=== PATIENT | male | born 1950 | race Caucasian/White ===

== ENCOUNTER 2019-09-13 01:52 | Inpatient (IN) ==
[~2019-09-13 01:52] MED LIST: DUONEB (A & A) INH ONE; SOLU-MEDROL IV ONE
--- NOTE | 2019-09-13 02:54 | PROVIDER DOCUMENTATION ---
HPI-General Adult - General Chief Complaint: Shortness of Breath Stated Complaint: resp distress Time Seen by Provider: 09/13/19 02:15 Source: patient, EMS Allergies/Adverse Reactions: Patient Allergies Allergy/AdvReac Type Severity Reaction Status Date / Time No Known Allergies Allergy Verified 09/13/19 02:55 Home Medications: Home Medication List Medication Instructions Recorded Confirmed Last Taken Type Ipratropium/Albuterol Sulfate 1 inh INH Q4H 08/20/18 09/13/19 08/20/18 History [Combivent Respimat 20-100 Mcg] Ranitidine [Zantac] 1 tab PO BID 08/20/18 09/13/19 Unknown History ATORVAstatin [Lipitor] 40 mg PO DAILY #90 tab 08/23/18 09/13/19 Unknown Rx Aspirin [Adult Low Dose Aspirin EC] 81 mg PO DAILY #30 tablet.dr 08/23/18 09/13/19 Unknown Rx Fluticasone/Vilanterol [Breo 1 ea IH DAILY #1 aer.pow.ba 08/23/18 09/13/19 Unknown Rx Ellipta Inhaler] Tiotropium [place] Inhaler 1 puff INH RTDAILY #30 inhaler 08/23/18 09/13/19 Unknown Rx [Spiriva] - History of Present Illness -Gen Adult Nature of Presenting Problems: Pt presents with sob, pmh of copd on home O2, now with worsening sob over the last couple of days, pt denies f/c, savage, cp, ap, n/v/d. Pt reports cough, pt is in mild respiratory distress, on BiPap Location of Pain/Injury: reports: none Pain Radiation: reports: no radiation Quality of Pain: reports: none Severity: reports: moderate Onset/Duration: reports: 2 days ago Timing: reports: still present Context/Activities at Onset: reports: none Modifying Factors: improves with: nothing Associated Symptoms: reports: cough, shortness of breath Similar Symptoms Previously?: Yes Recently seen or treated by another doctor?: No Review of Systems - Adult - REVIEW OF SYSTEMS - ADULT Constitutional: reports: no symptoms reported Eyes: reports: no symptoms reported Ears, Nose, Mouth & Throat: reports: no symptoms reported Cardiovascular: reports: no symptoms reported Respiratory: reports: see HPI Gastrointestinal: reports: no symptoms reported Genitourinary: reports: no symptoms reported Musculoskeletal: reports: no symptoms reported Integumentary: reports: no symptoms reported Neurological: reports: no symptoms reported Psychiatric: reports: no symptoms reported Endocrine: reports: no symptoms reported Hematologic/Lymphatic: reports: no symptoms reported Allergic/Immunologic: reports: no symptoms reported All Other Systems: Reviewed and Negative Past History - Adult - PAST MEDICAL HISTORY-ADULT Review of Records: reports: Old Records Reviewed, Nursing Assessment Review, Medications Reviewed, Social history reviewed & non-contributory. Major Childhood Illnesses: reports: denies history Cardiovascular: reports: denies history Respiratory: reports: COPD Gastrointestinal: reports: denies history Obstetrical/Gynecological: reports: denies history Genitourinary: reports: denies history Musculoskeletal: reports: denies history Neurological: reports: denies history Psychiatric: reports: denies history Endocrine/Immune: reports: denies history Other Conditions: reports: denies history - PRIOR SURGERIES/PROCEDURES Surgical/Procedure History: reports: appendectomy, tonsillectomy - IMMUNIZATION STATUS Childhood Immunizations: See Nurse Assessment Flu Vaccine: See Nurse Assessment - FAMILY HISTORY Family History: reviewed, not pertinent Physical Exam-General - PHYSICAL EXAM-ADULT Initial Vital Signs Reviewed: Yes - CONSTITUTIONAL General Appearance: appears well - EYES Eyes: PERRL/EOMI - HEAD, EARS, NOSE, MOUTH & THROAT HENMT: normocephalic/atraumatic - NECK Neck: normal inspection - RESPIRATORY Respiratory: respiratory distress, wheezing - CARDIOVASCULAR Cardiovascular: tachycardia - GASTROINTESTINAL (ABDOMEN) Abdominal Exam: normal bowel sounds, non tender, soft - LYMPHATIC Lymphatic: no adenopathy - MUSCULOSKELETAL Back Exam: normal inspection Extremity: normal range of motion - SKIN Integumentary: normal color - NEUROLOGIC Neurologic: grossly normal - PSYCHIATRIC Psych/Mental Status: normal mood/affect Progress - PLAN OF CARE/RESULTS Progress/Plan/Lab Results: Vital Signs - 8 hr 09/13/19 02:03 09/13/19 02:07 Temperature 97.8 F Pulse Rate 103 H 100 H Respiratory Rate 23 20 Blood Pressure 142/120 O2 Sat by Pulse Oximetry 99 100 Orders Category Date Time Status CHEST-1 VIEW [RAD] Stat Exams 09/13/19 01:50 Taken BLOOD CULTURE [BLDCUL] Stat Lab 09/13/19 02:43 Ordered CBC WITH ELECTRONIC DIFF [HEME] Stat Lab 09/13/19 02:43 Ordered COMPREHENSIVE METABOLIC PANEL [CHEM] Stat Lab 09/13/19 02:43 Ordered LACTATE, PLASMA [CHEM] Stat Lab 09/13/19 02:43 Ordered PRO B-NATRIURETIC PEPTIDE Stat Lab 09/13/19 02:43 Ordered TROPONIN T Stat Lab 09/13/19 02:43 Ordered Albuterol 2.5MG/Ipratrop 0.5MG [Duoneb (A & A)] Med 09/13/19 01:50 Discontinued 9 ml INH NOW ONE Methylprednisolone Sod Succ [Solu-Medrol] Med 09/13/19 01:50 Discontinued 125 mg IV NOW ONE Aerosol Treatments Routine Oth 09/13/19 01:51 Completed Aerosol Treatments Stat Oth 09/13/19 01:51 Completed BIPAP Stat Oth 09/13/19 02:09 Active EKG [EKG] Stat Ther 09/13/19 01:50 Ordered Result Diagrams: 09/13/19 02:40 09/13/19 02:40 Departure - Departure Date of Disposition Decision: 09/13/19 Time of Disposition Decision: 04:07 DIAGNOSIS: COPD exacerbation Disposition: ADMITTED INPATIENT 09 Certified Medical Emergency: Emergent Condition: Stable - Critical Care Note This patient required my direct & personal management of CC.: No Attestation - Physician/ JEANNA Attestation Patient care was provided by Advanced Practice Provider:: No The physician spent face to face time with patient:: Yes Advanced Practice Provider documentation review:: Supervising physician onsite and consulted in the evaluation and care of this patient. The physician did have a face to face encounter with the patient.
[2019-09-13 03:03] LABS: BASO# 0.02 X1000 (0.0-0.2); BASO% 0.3 % (0.0-0.8); EOS# 0.12 X1000 (0.0-0.7); EOS% 1.9 % (0.0-10.0); HEMATOCRIT 48.3 % (42.0-52.0); HEMOGLOBIN 15.6 g/dL (14.0-18.0); LYMPH# 2.29 X1000 (1.2-3.4); LYMPH% 36.8 % (20.5-51.1); MCH 28.5 PG (27-31); MCHC 32.3 g/dL (33-37); MCV 88.1 FL (81-99); MONO# 0.46 X1000 (0.11-0.59); MONO% 7.4 % (1.7-9.3); MPV 10.7 FL (7.4-10.4); NEUT# 3.33 X1000 (1.4-6.5); NEUT% 53.6 % (42.2-75.2); PLT 144 X1000 (130-400); RBC 5.48 XMIL (4.7-6.1); RDW 14.3 % (11.5-14.5); WBC 6.22 X1000 (4.8-10.8)
[2019-09-13 03:38] LABS: AGAP 18; ALB/GLOB RATIO 1.8; ALBUMIN 3.9 g/dL (3.5-5.0); ALKALINE PHOSPHATASE 134 U/L (32-122); BUN 13 mg/dL (8-22); CHLORIDE 102 mmol/L (98-107); COSMO 285; CREATININE 1.1 mg/dL (0.7-1.2); ESTIMATED GFR > 60; GLUCOSE 159 mg/dL (70-104); GOT 19 U/L (10-34); GPT 20 U/L (10-44); POTASSIUM 3.6 mmol/L (3.5-5.1); SODIUM 141 mmol/L (136-145); TCO2 21 mmol/L (25-35); TOTAL BILIRUBIN 0.77 mg/dL (0.20-1.00); TOTAL PROTEIN 6.1 g/dL (6.3-8.3)
--- NOTE | 2019-09-13 04:33 | EKG Report ---
Test Performed on : 09/13/2019 01:58:11 AM Test Reason : SOB Blood Pressure : / mmHG Vent. Rate : 106 BPM Atrial Rate : 106 BPM P-R Int : 180 ms QRS Dur : 066 ms QT Int : 316 ms P-R-T Axes : 088 096 086 degrees QTc Int : 419 ms Sinus tachycardia. Rightward axis Pulmonary disease pattern Abnormal ECG When compared with ECG of 17-MAR-2019 11:19, No significant change was found Unconfirmed Result
--- NOTE | 2019-09-13 04:40 | Diag Imaging Result Doc PS360 ---
EXAM: CHEST-1 VIEW HISTORY: sob TECHNIQUE: Single view COMPARISON: 07/18/2019 FINDINGS: The lungs are hyperexpanded. The heart is not enlarged. The vessels are small. There are mild increased interstitial markings in the mid right lung and left base. Small pleural effusions. IMPRESSION: 1.Emphysema 2.Suspect small bilateral infiltrates. 3.Small pleural effusions 4.Follow-up PA and lateral recommended Electronically signed by Benton Gaspar 09/13/2019 4:37 AM
--- NOTE | 2019-09-13 08:58 | HISTORY AND PHYSICAL ---
PRIMARY CARE PHYSICIAN: Dr. Rehman. CHIEF COMPLAINT: Shortness of breath. HISTORY OF PRESENTING ILLNESS: 69-year-old male with a history of COPD and hyperlipidemia who presented to the emergency department with one day history of worsening shortness of breath. The patient states that he was coughing for several days prior to shortness of breath and states that it seemed to be worsening. The patient was evaluated in the emergency department. He was in some mild moderate respiratory distress and was put on BiPAP. Due to his presenting symptoms, he will require admission for further management. At the time of my examination, patient denied any headache, fever, chills, nausea, vomiting, diarrhea, hemoptysis, or weight changes, but complained of shortness of breath and coughing. PAST MEDICAL HISTORY: COPD, hyperlipidemia. PAST SURGICAL HISTORY: None. ALLERGIES: No known drug allergies. CURRENT MEDICATIONS: Aspirin 81 mg p.o. daily, atorvastatin 40 mg p.o. daily, ranitidine 150 mg p.o. b.i.d., Spiriva inhaler 1 puff inhalation daily, Combivent Respimat 1 inhalation q.4 hours. SOCIAL HISTORY: Sixty pack years history of smoking. Admits to social alcohol use. Denies any illicit drug use. FAMILY HISTORY: Positive for coronary disease in father. REVIEW OF SYSTEMS: Fourteen point review of system is as in HPI. Other systems negative. PHYSICAL EXAMINATION: GENERAL: Cooperative, friendly male. He is resting more comfortably now. He is currently on BiPAP. VITAL SIGNS: Temperature 97.8 degrees, pulse 103 respirations 22, blood pressure 142/120. HEENT: Atraumatic, normocephalic. Extraocular movements intact. PERRLA. NECK: No masses. CHEST: Rhonchi. CARDIOVASCULAR: Regular rate and rhythm. ABDOMEN: Soft positive bowel sounds. EXTREMITIES: No edema. NEUROLOGIC: He is awake, alert, oriented x3. : No bladder distention. SKIN: Warm. LABORATORIES AND STUDIES: Sodium 141, potassium 3.6 chloride 102, CO2 is 21, BUN is 13, creatinine is 1.1, glucose 159. WBC 6.22, hemoglobin 15.6, hematocrit 48.3, platelets 144,000. Troponin 0.010. Chest x-ray shows emphysema and small bilateral infiltrates. ASSESSMENT: This is a 69-year-old male with a history of chronic obstructive pulmonary disease and hyperlipidemia who had presented to the emergency department with a 1-day history of having worsening shortness of breath. He was evaluated in the emergency department. He was found to be in mild moderate respiratory distress and was put on BiPAP. Due to his presenting symptoms, he will require admission for further management assessment. 1. Acute on chronic respiratory failure. 2. Acute chronic obstructive pulmonary disease exacerbation. 3. Suspected pneumonia. 4. Hyper lipidemia. PLAN: 1. We will admit patient to medical floor with telemetry. 2. We will continue patient on BiPAP. 3. We will check blood cultures. Start patient on IV antibiotics. 4. Restart his other home medications. 5. Put patient on DVT prophylaxis with Lovenox. 6. We will continue to follow and reassess and make further recommendations based on patient's clinical course. cc: MD Link Tapia MD
[2019-09-13] MEDS ORDERED: TYLENOL PO PRN (09:17)
[2019-09-13] MEDS: DUONEB (A & A) INH SCH ×5 (09:44→23:11)
[2019-09-13] MEDS: ASPIRIN EC PO SCH (10:15)
[2019-09-13] MEDS: ZANTAC PO SCH ×2 (10:16→20:51)
[2019-09-13] MEDS: LEVAQUIN 500 MG/D5W 500 MG/100 ML IVPB IV SCH (10:16)
[2019-09-13] MEDS: LOVENOX SUBQ SCH (10:16)
[2019-09-13] MEDS: LIPITOR PO SCH (10:16)
[2019-09-13] MEDS: SOLU-MEDROL IV SCH ×2 (10:16→17:34)
[2019-09-13] MEDS: NS 1,000 ML IV SCH ×2 (10:17→20:51)
[2019-09-14] MEDS: SOLU-MEDROL IV SCH ×2 (02:43→22:00)
[2019-09-14] MEDS: DUONEB (A & A) INH SCH ×6 (03:27→23:03)
[2019-09-14 04:55] LABS: ALLEN TEST YES; BE -2.3 mmoll (-3.0-3.0); BLOOD TYPE ARTERIAL; HCO3-(ACT) 23.1 mmoll (20.0-26.0); METHB 0.9 % (0.0-1.5); O2(CT) 21.4 mL/dL (15.0-23.0); PCO2(98.6) 34 mmHg (35-45); PO2(98.6) 191 mmHg (60-100); SAMPLE BLOOD; THB 15.4 g/dL (11.5-17.4); pH(98.6) 7.41 (7.35-7.45)
[2019-09-14 04:56] LABS: MODALITY BI PAP
[2019-09-14] MEDS: LOVENOX SUBQ SCH (08:25)
[2019-09-14] MEDS: LEVAQUIN 500 MG/D5W 500 MG/100 ML IVPB IV SCH (08:25)
[2019-09-14] MEDS: ASPIRIN EC PO SCH (08:26)
[2019-09-14] MEDS: NS 1,000 ML IV SCH (08:26)
[2019-09-14] MEDS: ZANTAC PO SCH ×2 (08:26→22:00)
[2019-09-14] MEDS: LIPITOR PO SCH (08:26)
[2019-09-14 08:52] LABS: AGAP 13; BUN 18 mg/dL (8-22); CALCIUM 9.2 mg/dL (8.8-10.2); CHLORIDE 106 mmol/L (98-107); CK PROFILE 337 U/L (24-204); COSMO 285; CREATININE 1.1 mg/dL (0.7-1.2); ESTIMATED GFR > 60; GLUCOSE 131 mg/dL (70-104); POTASSIUM 4.2 mmol/L (3.5-5.1); SODIUM 141 mmol/L (136-145); TCO2 22 mmol/L (25-35)
[2019-09-14 08:58] LABS: BASO# 0.01 X1000 (0.0-0.2); BASO% 0.1 % (0.0-0.8); HEMATOCRIT 45.6 % (42.0-52.0); HEMOGLOBIN 14.9 g/dL (14.0-18.0); IMM GRAN# 0.02 X1000 (0.0-0.04); IMM GRAN% 0.2 % (0.0-0.5); LYMPH# 0.72 X1000 (1.2-3.4); LYMPH% 5.7 % (20.5-51.1); MCH 28.8 PG (27-31); MCHC 32.7 g/dL (33-37); MCV 88.2 FL (81-99); MONO# 0.41 X1000 (0.11-0.59); MONO% 3.2 % (1.7-9.3); MPV 10.8 FL (7.4-10.4); NEUT# 11.54 X1000 (1.4-6.5); NEUT% 90.8 % (42.2-75.2); PLT 167 X1000 (130-400); RBC 5.17 XMIL (4.7-6.1); RDW 14.6 % (11.5-14.5)
[2019-09-14 09:23] LABS: LYMPHS 2 % (21-51); SEGS 98 % (42-75)
[2019-09-14 09:30] LABS: CK INDEX 2.7 (0.0-2.5); CK-MB 9.07 ng/mL (0.0-5.0)
[2019-09-15] MEDS: SOLU-MEDROL IV SCH ×3 (03:03→19:17)
[2019-09-15] MEDS: DUONEB (A & A) INH SCH ×6 (03:25→23:26)
--- NOTE | 2019-09-15 04:57 | PROGRESS NOTE ---
DATE: 09/14/2019 SUBJECTIVE: A 69-year-old white gentleman admitted to the hospital yesterday for acute COPD exacerbation. He had a bad spell last night and placed on BiPAP. He denies any chest pain. PAST MEDICAL HISTORY: Reviewed. PAST SURGICAL HISTORY: Reviewed. MEDICINES: Reviewed. ALLERGIES: Not known. PHYSICAL EXAMINATION: Vital Signs: Temperature 97.9 degrees, pulse 96, blood pressure 121/76, and 4 L nasal cannula 95%. HEENT: Within normal limits. Neck: Supple. No lymphadenopathy. Chest: Bilateral air entry poor. Heart: Sounds are distant. Abdomen: Belly is soft, nontender, obese. Extremities: No peripheral edema or cyanosis. Neurologic: No obvious neurological deficits. INVESTIGATIONS: White cell count 12.7, hematocrit 45, and platelet 167,000. ABG: pH is 7.41, pCO2 34, and PO2 119 on BiPAP 40%. Sodium 140, potassium 4.2, chloride 106, BUN 18, creatinine 1.9, and glucose 131. Troponin was negative. CK is positive. EKG normal sinus with right poor axis, nothing acute. Chest x-ray with emphysema, and small bilateral infiltrates. ASSESSMENT AND PLAN: 1. COPD exacerbation. Continue present treatment, oxygen, bronchodilators, IV steroids, and IV antibiotics. BiPAP as needed. 2. Atypical chest pain. Positive CKMB index. Previous stress test was negative on 08/23/2018. 3. Deep venous thrombosis and gastrointestinal prophylaxis as per order sheet. 4. Reconcile home medicines. 5. Pneumococcal vaccine 13 was given 07/2018. 6. Discussed the plan of care. We will follow up. LEVEL OF DOCUMENTATION: 35 minutes. cc: Link Rehman MD
[2019-09-15] MEDS: SPIRIVA INH SCH (08:08)
[2019-09-15] MEDS: LEVAQUIN 500 MG/D5W 500 MG/100 ML IVPB IV SCH (08:49)
[2019-09-15] MEDS: ZANTAC PO SCH ×2 (08:49→21:25)
[2019-09-15] MEDS: LIPITOR PO SCH (08:49)
[2019-09-15] MEDS: LOVENOX SUBQ SCH (08:49)
[2019-09-15] MEDS: ASPIRIN EC PO SCH (08:49)
[2019-09-15] MEDS: BREO ELLIPTA 100/25 MCG INH INH SCH (18:20)
[2019-09-16] MEDS: DUONEB (A & A) INH SCH ×6 (03:18→23:04)
[2019-09-16] MEDS: SOLU-MEDROL IV SCH ×3 (03:27→18:59)
--- NOTE | 2019-09-16 06:37 | PROGRESS NOTE ---
DATE: 09/15/2019 SUBJECTIVE: The patient is extremely short of breath even to go to the bathroom and he has tight respiratory distress using BiPAP which is helping. PHYSICAL EXAM: Temperature is 97 degrees, pulse 88, vitals are stable. Lungs: Poor air entry. Heart: Distant heart sounds. Abdomen: Belly is soft, nontender. Good bowel sounds. No masses palpable. Neurologic: No obvious neurological deficits. LABS: Nothing unremarkable. ASSESSMENT AND PLAN: 1. Acute chronic obstructive pulmonary disease exacerbation. Plan is oxygen. 2. Bronchodilators. IV steroids, IV antibiotics. 3. Hyperlipidemia on Lipitor. 4. DVT and gastrointestinal prophylaxis with Lovenox and Zantac and continue present treatment. LEVEL OF DOCUMENTATION: 25 minutes. cc: Link Rehman MD
[2019-09-16] MEDS: SPIRIVA INH SCH (08:04)
[2019-09-16] MEDS: LEVAQUIN 500 MG/D5W 500 MG/100 ML IVPB IV SCH (09:44)
[2019-09-16] MEDS: LIPITOR PO SCH (09:44)
[2019-09-16] MEDS: LOVENOX SUBQ SCH (09:44)
[2019-09-16] MEDS: ZANTAC PO SCH ×2 (09:44→21:29)
[2019-09-16] MEDS: ASPIRIN EC PO SCH (09:44)
[2019-09-16] MEDS: BREO ELLIPTA 100/25 MCG INH INH SCH (11:56)
[2019-09-16] MEDS ORDERED: MIRALAX PO ONE (15:19)
[2019-09-16] MEDS: NICODERM PATCH TD PRN (15:36)
[2019-09-16] MEDS: TESSALON PO PRN (15:36)
[2019-09-16] MEDS: MUCINEX PO SCH (21:29)
[2019-09-16] MEDS: MIRALAX PO SCH (21:29)
--- NOTE | 2019-09-16 22:47 | PROGRESS NOTE ---
DATE: 09/16/2019 SUBJECTIVE: The patient has exertional shortness of breath, productive cough, and still smoking. Even going to the bathroom he is extremely short of breath. The daughter is at bedside. OBJECTIVE: Vital signs: Temperature is 98 degrees, tachycardic. Vitals are stable. Lungs: Using accessory muscles of respiration. Poor air entry. Heart: Sounds are regular. Abdomen: Belly is soft, nontender. No obvious deficits noted. INVESTIGATIONS: None reported. ASSESSMENT AND PLAN: 1. Acute chronic obstructive pulmonary disease exacerbation. BiPAP as needed. Continue on Levaquin, IV steroids, bronchodilators. 2. Tobacco abuse. Nicotine patch. 3. Constipation. MiraLAX was given. 4. Hyperlipidemia. Lipitor. 5. For cough, Tessalon Perles and Mucinex. 6. Continue present treatment and check the labs in the morning. LEVEL OF DOCUMENTATION: 25 minutes. cc: Link Rehman MD MTDD
[2019-09-17] MEDS: DUONEB (A & A) INH SCH ×6 (02:37→23:25)
[2019-09-17] MEDS: SOLU-MEDROL IV SCH ×3 (03:04→18:50)
[2019-09-17 07:38] LABS: BASO# 0.01 X1000 (0.0-0.2); BASO% 0.1 % (0.0-0.8); HEMATOCRIT 48.4 % (42.0-52.0); HEMOGLOBIN 15.5 g/dL (14.0-18.0); IMM GRAN# 0.05 X1000 (0.0-0.04); IMM GRAN% 0.5 % (0.0-0.5); LYMPH# 0.83 X1000 (1.2-3.4); LYMPH% 7.7 % (20.5-51.1); MCH 28.5 PG (27-31); MONO# 0.57 X1000 (0.11-0.59); MONO% 5.3 % (1.7-9.3); MPV 10.5 FL (7.4-10.4); NEUT# 9.27 X1000 (1.4-6.5); NEUT% 86.4 % (42.2-75.2); PLT 181 X1000 (130-400); RBC 5.44 XMIL (4.7-6.1); RDW 14.5 % (11.5-14.5); WBC 10.73 X1000 (4.8-10.8)
[2019-09-17 07:49] LABS: AGAP 11; BUN 23 mg/dL (8-22); CALCIUM 9.5 mg/dL (8.8-10.2); CHLORIDE 102 mmol/L (98-107); CK PROFILE 180 U/L (24-204); COSMO 289; CREATININE 1.1 mg/dL (0.7-1.2); ESTIMATED GFR > 60; GLUCOSE 134 mg/dL (70-104); POTASSIUM 4.4 mmol/L (3.5-5.1); SODIUM 142 mmol/L (136-145); TCO2 29 mmol/L (25-35)
[2019-09-17] MEDS: BREO ELLIPTA 100/25 MCG INH INH SCH (07:57)
[2019-09-17] MEDS: SPIRIVA INH SCH (07:57)
[2019-09-17] MEDS: LEVAQUIN 500 MG/D5W 500 MG/100 ML IVPB IV SCH (08:58)
[2019-09-17] MEDS: ASPIRIN EC PO SCH (08:58)
[2019-09-17] MEDS: LOVENOX SUBQ SCH (08:59)
[2019-09-17] MEDS: ZANTAC PO SCH ×2 (08:59→20:54)
[2019-09-17] MEDS: LIPITOR PO SCH (08:59)
[2019-09-17] MEDS: MUCINEX PO SCH ×2 (08:59→20:54)
[2019-09-17] MEDS: MIRALAX PO SCH ×2 (08:59→20:54)
[2019-09-17] MEDS: NICODERM PATCH TD PRN (08:59)
[2019-09-17] MEDS: TESSALON PO PRN (08:59)
[2019-09-17 10:45] LABS: LYMPHS 10 % (21-51); MONO 2 % (1-9); SEGS 86 % (42-75)
--- NOTE | 2019-09-17 11:52 | PROGRESS NOTE ---
DATE: 09/17/2019 SUBJECTIVE: The patient is resting well. No chest pain, exertional shortness of breath. PHYSICAL EXAMINATION: General: He has a plethoric face. Vital Signs: Temperature is 97.8 degrees, pulse is 82, blood pressure is 154/89. HEENT: Within normal limits. Neck: Supple. No lymphadenopathy. No goiter. Chest: Clear to auscultation. Heart: Heart sounds are regular and distant. Abdomen: Belly is soft, nontender. Neurologic: No obvious deficits. LABORATORY DATA: White cell count 10, hematocrit 48, platelets 181,000. SMA-7 is normal. CK is 180. Troponin was normal. ProBNP is normal. ASSESSMENT AND PLAN: 1. Acute chronic obstructive pulmonary disease exacerbation. Continue bilevel positive airway pressure. 2. Tobacco abuse, on Nicotrol patch. 3. Deep venous thrombosis and gastrointestinal prophylaxis. Continue present treatment. LEVEL OF DOCUMENTATION: 25 minutes. cc: Link Rehman MD
--- NOTE | 2019-09-17 14:42 | EKG Report ---
Test Performed on : 09/17/2019 06:11:03 AM Test Reason : cp Blood Pressure : / mmHG Vent. Rate : 083 BPM Atrial Rate : 083 BPM P-R Int : 180 ms QRS Dur : 066 ms QT Int : 350 ms P-R-T Axes : 078 071 085 degrees QTc Int : 411 ms Normal sinus rhythm. Normal ECG When compared with ECG of 13-SEP-2019 01:58, (Unconfirmed) No significant change was found Confirmed by Ori DE LUNA, P.J.M ([id number]) on 09/18/2019 6:31:24 PM
[2019-09-18] MEDS: SOLU-MEDROL IV SCH ×3 (03:06→18:21)
[2019-09-18] MEDS: DUONEB (A & A) INH SCH ×6 (03:38→23:24)
[2019-09-18] MEDS: SPIRIVA INH SCH (08:00)
[2019-09-18] MEDS: BREO ELLIPTA 100/25 MCG INH INH SCH (08:00)
[2019-09-18] MEDS: MUCINEX PO SCH ×2 (09:47→20:08)
[2019-09-18] MEDS: LIPITOR PO SCH (09:47)
[2019-09-18] MEDS: LOVENOX SUBQ SCH (09:47)
[2019-09-18] MEDS: ZANTAC PO SCH ×2 (09:47→20:08)
[2019-09-18] MEDS: LEVAQUIN 500 MG/D5W 500 MG/100 ML IVPB IV SCH (09:47)
[2019-09-18] MEDS: ASPIRIN EC PO SCH (09:47)
[2019-09-18] MEDS: TESSALON PO PRN (20:11)
--- NOTE | 2019-09-18 21:40 | PROGRESS NOTE ---
DATE: 09/18/2019 SUBJECTIVE: The patient is a little better. Shortness of breath improving as well as cough. Decreased productive cough. He is not using BiPAP machine. No chest pain. PHYSICAL EXAMINATION: Vital signs: Temperature is 98 degrees, pulse 98, blood pressure is stable. HEENT: Within normal limits. Neck: Supple. Chest: Bilateral air entry. Prolonged expiratory phase. Heart: Distant heart sounds. Abdomen: Belly is soft, nontender. Good bowel sounds. No masses palpable. Neurologic: No neurological deficits. INVESTIGATIONS: White cell count 10, hematocrit 48, platelets 181,000. Cardiac enzymes were negative. EKG is unremarkable. ASSESSMENT AND PLAN: 1. Acute chronic obstructive pulmonary disease exacerbation, off BiPAP. Continue present treatment. 2. Quit smoking. 3. Continue intravenous steroids. 4. Nicotine cessation programs. 5. Hyperlipidemia, on Lipitor. 6. Currently stable, slowly improving. LEVEL OF DOCUMENTATION: 25 minutes. cc: Link Rehman MD
[2019-09-19] MEDS: DUONEB (A & A) INH SCH ×6 (03:32→23:20)
[2019-09-19] MEDS: SOLU-MEDROL IV SCH ×3 (04:29→20:18)
[2019-09-19] MEDS: SPIRIVA INH SCH (07:50)
[2019-09-19] MEDS: BREO ELLIPTA 100/25 MCG INH INH SCH (07:50)
[2019-09-19] MEDS: LEVAQUIN 500 MG/D5W 500 MG/100 ML IVPB IV SCH (09:13)
[2019-09-19] MEDS: ZANTAC PO SCH ×2 (09:13→20:17)
[2019-09-19] MEDS: ASPIRIN EC PO SCH (09:13)
[2019-09-19] MEDS: LOVENOX SUBQ SCH (09:13)
[2019-09-19] MEDS: LIPITOR PO SCH (09:13)
[2019-09-19] MEDS: MUCINEX PO SCH ×2 (09:13→20:17)
[2019-09-19] MEDS: TESSALON PO PRN (14:36)
[2019-09-19] MEDS: NICODERM PATCH TD PRN (20:36)
--- NOTE | 2019-09-19 22:50 | PROGRESS NOTE ---
DATE: 09/19/2019 SUBJECTIVE: The patient is a little better. Breathing is improving. He is not using BiPAP machine. OBJECTIVE: Temperature is 97.6 degrees, pulse is 93, blood pressure is stable, 95% on nasal cannula. HEENT within normal limits. Neck is supple. No lymphadenopathy. Chest: Bilateral air entry. Heart sounds are regular. Belly is soft, nontender. Good bowel sounds. No obvious deficits. ASSESSMENT AND PLAN: 1. Acute chronic obstructive pulmonary disease exacerbation is improving. Continue present treatment. 2. Hyperlipidemia, on Lipitor. 3. Deep venous thrombosis and gastrointestinal prophylaxis. 4. Continue intravenous steroids, intravenous antibiotics and nicotine cessation programs discussed. 5. Initiate vaccination protocol prior to the discharge. The patient did receive pneumococcal vaccine 13 in August 2018. Level of documentation 25 minutes. cc: Link Rehman MD
[2019-09-20] MEDS: DUONEB (A & A) INH SCH ×2 (03:46→07:47)
[2019-09-20] MEDS: SOLU-MEDROL IV SCH (04:03)
[2019-09-20] MEDS: SPIRIVA INH SCH (07:46)
[2019-09-20] MEDS: BREO ELLIPTA 100/25 MCG INH INH SCH (07:47)
[2019-09-20 08:34] VITALS: BP 164/83
[2019-09-20] MEDS ORDERED: FLU VACCINE IM ONE (08:58)
[2019-09-20] MEDS: MUCINEX PO SCH (10:07)
[2019-09-20] MEDS: ASPIRIN EC PO SCH (10:07)
[2019-09-20] MEDS: ZANTAC PO SCH (10:07)
[2019-09-20] MEDS: LIPITOR PO SCH (10:10)
[2019-09-20] MEDS: LOVENOX SUBQ SCH (10:10)
[2019-09-20] MEDS: LEVAQUIN 500 MG/D5W 500 MG/100 ML IVPB IV SCH (10:11)
--- NOTE | 2019-09-21 18:34 | DISCHARGE SUMMARY ---
ADMISSION DATE: 09/13/2019 DISCHARGE DATE: 09/20/2019 DISCHARGING DIAGNOSIS: Acute chronic obstructive pulmonary disease exacerbation. SECONDARY DIAGNOSES: 1. Chronic tobacco abuse. 2. Hyperlipidemia. 3. Gout. 4. Metabolic syndrome. 5. Chronically occluded left vertebral artery. 6. Atypical chest pain. Previous stress test was negative in July 2018 HOSPITAL COURSE: In brief, please see the H and P that was done by the hospitalist. He is a 69- year-old white male with a known history of COPD who continues to smoke. Came in with cough, shortness of breath, wheezing. He did require noninvasive ventilator support with BiPAP. He was extremely short of breath with minimal activity. He has COPD with pink puffer face. After treating with aggressive bronchial toilet, the patient's condition is much improved. LABS: CBC: White cell count 10, hematocrit 48, platelets 181. Sodium 143, potassium 4.2, chloride 102, BUN 23, creatinine 1.1 glucose 134. CK, troponin, and proBNP were normal. Blood cultures were negative. Chest x-ray: Emphysema. DISCHARGE PLAN: 1. The patient was given a nicotine cessation program. I would evaluate him outpatient for home oxygen and also do outpatient pulmonary function tests. 2. Pneumococcal vaccine 13 was given 08/06/2018. Flu vaccine 09/20/2019. 3. Quit smoking. 4. Zantac 150 p.o. b.i.d., aspirin 81 mg daily, Lipitor 40 daily, Breo 1 puff daily, Spiriva 1 puff daily, Medrol Dosepak, guaifenesin ER 600 p.o. b.i.d., Nicotrol patch 21 mg daily, Tessalon Perles 100 t.i.d., Levaquin 500 daily, albuterol/Atrovent nebulizers every 6 hours as needed and Combivent as needed for breakthrough shortness of breath. 5. Follow up in my office in 10 days. We will set up an outpatient home oxygen evaluation and PFTs. cc: Link Rehman MD
== END 2019-09-20 13:23 | disposition home health service (06) | DRG 190 ==
LOC: ED 01:52 → EDIPHOLD 05:53 → SUATTDRO 05:53 → 3N 08:35
PROVIDERS: ADMIT Internal Medicine; ATTEND Internal Medicine